=== PATIENT | female | born 1970 | race American Indian/Alaskan Native ===

== ENCOUNTER 2016-07-29 20:54 | Emergency (ER) | payer OTHER ==
[2016-07-29 21:09] VITALS: BMI 43.7
[2016-07-29 21:12] VITALS: RESP 18; TEMP 98.3; O2SAT 98
[2016-07-29] MEDS ORDERED: Oxycodone/Acetaminophen 5/325 mg Tab PO STA (21:22)
[2016-07-29] MEDS ORDERED: Lidocaine 5% Patch TD STA (21:22)
--- NOTE | 2016-07-29 21:22 | ED PDOC ---
Arrival/HPI - General Historian: Patient - General Chief Complaint: Back Pain Time Seen by Provider: 07/29/16 21:14 - History of Present Illness Narrative History of Present Illness (Text): 07/29/16 21:14 45 y/o female, pmh including htn and dm, penicillin allergy, c/o lower back pain x 2 days. Aching pain, aggravated by the movement, non-radiating, no night sweat, no urinary symptoms, no urinary or bowel incontinence or retention , no chest pain or shortness of breath, no night sweat, no numbness or tingling , no other medical or psychological complaint. (Casimiro Rodas) Past Medical History - Provider Review Nursing Documentation Reviewed: Yes - Infectious Disease Hx of Infectious Diseases: None - Tetanus Immunization Tetanus Immunization: Up to Date - Cardiac Hx Hypertension: Yes - Endocrine/Metabolic Hx Diabetes Mellitus Type 2: Yes - Psychiatric Hx Psychophysiologic Disorder: No Hx Depression: No Hx Emotional Abuse: No Hx Physical Abuse: No Hx Substance Use: No - Surgical History Other/Comment: hernia - Anesthesia Hx Anesthesia: Yes Hx Anesthesia Reactions: No Hx Malignant Hyperthermia: No - Suicidal Assessment Feels Threatened In Home Enviroment: No Family/Social History - Physician Review Nursing Documentation Reviewed: Yes Family/Social History: Unknown Family HX Smoking Status: Never Smoked Hx Alcohol Use: No Hx Substance Use: No Hx Substance Use Treatment: No Allergies/Home Meds Allergies/Adverse Reactions: Allergies Penicillins Allergy (Verified 07/29/16 21:09) ANAPHYLAXIS Home Medications: Home Meds Medication Instructions Recorded Confirmed Aspirin [Aspirin] 81 mg PO DAILY 02/11/15 02/14/15 Losartan/Hydrochlorothiazide 25 mg PO DAILY 02/11/15 02/14/15 [Hyzaar 12.5 mg-100 mg] Metformin Hydrochloride [Metformin] 500 mg PO DAILY 02/11/15 02/14/15 Review of Systems - Review of Systems Constitutional: absent: Fatigue, Fevers Eyes: absent: Vision Changes ENT: absent: Hearing Changes Respiratory: absent: SOB, Cough, Sputum Cardiovascular: absent: Chest Pain Gastrointestinal: absent: Abdominal Pain, Nausea, Vomiting Musculoskeletal: Back Pain. absent: Arthralgias, Neck Pain, Joint Swelling, Myalgias Skin: absent: Rash, Pruritis, Skin Lesions, Laceration Psychiatric: absent: Anxiety, Depression, Suicidal Ideation Physical Exam Vital Signs Reviewed: Yes Temperature: Afebrile Blood Pressure: Normal Pulse: Regular Respiratory Rate: Normal Appearance: Positive for: Well-Appearing, Non-Toxic, Comfortable Pain Distress: Severe Mental Status: Positive for: Alert and Oriented X 3 - Systems Exam Head: Present: Atraumatic, Normocephalic Pupils: Present: PERRL Extroacular Muscles: Present: EOMI Conjunctiva: Present: Normal Mouth: Present: Moist Mucous Membranes Neck: Present: Normal Range of Motion Respiratory/Chest: Present: Clear to Auscultation, Good Air Exchange. No: Respiratory Distress, Accessory Muscle Use Cardiovascular: Present: Regular Rate and Rhythm, Normal S1, S2. No: Murmurs Abdomen: Present: Normal Bowel Sounds. No: Tenderness, Distention, Peritoneal Signs Back: Present: Normal Inspection, Paraspinal Tenderness, Other (LS spine: +ttp and spasm noted on the bilateral region, no midline tenderness or step off, FROM without limitation, sensation intact, motor 5/5). No: CVA Tenderness, Midline Tenderness, Pain with Leg Raise, Decubitus Ulcer Upper Extremity: Present: Normal Inspection. No: Cyanosis, Edema Lower Extremity: Present: Normal Inspection. No: Edema Neurological: Present: GCS=15, CN II-XII Intact, Speech Normal Skin: Present: Warm, Dry, Normal Color. No: Rashes Psychiatric: Present: Alert, Oriented x 3, Normal Insight, Normal Concentration Vital Signs Temp Pulse Resp BP Pulse Ox 07/29/16 21:12 98.3 F 88 18 149/90 98 Medical Decision Making - RAD Interpretation Adoption Specialist: Radiologist ED Course and Treatment: I was available for consultation during PA evaluation. The chart reviewed by me , and I agree with disposition. The documented history was done by the physician division sales manager. The documented physical exam was done by the physician division sales manager. The documented procedures were done by the physician division sales manager. (Diego Stiles) 07/29/16 21:36 -Toradol/percocet/flexeril/lidoderm -CT Lumbar spine 07/29/16 23:32 -Pain decrease significantly -CT Lumbar spine show L4L5 and L5S1 lumbar herniation, no focal neurological deficits, decadron 8mg IM ordered. -Pt. has no focal neurological deficits, walking with normal gait and posture, will discharge home. -Discharge home with lidoderm patch, flexeril, cane, continue the naproxen you have at home, follow up with your own pmd and neurosurgery within 2 days, return to the ER for any new or worsening signs or symptoms. (Casimiro Rodas) - RAD Interpretation Radiology Orders: 07/29/16 21:22 LUMBAR SPINE W/O CONTRAST [CT] Stat 07/29/16 21:22 LUMBAR SPINE W/O CONTRAST [CT] Stat FINDINGS: Vertebrae: 5 lumbar vertebral bodies are normal in height and configuration. There are no fractures. There is partial lumbarization of the S1 segment. There is degenerative facet disease L4-5 at L5-S1. Sacroiliac joints are patent. L1-2 disc space is preserved. L2-3 disc space is preserved. L3-4 disc space is preserved. L4-5 disc space is preserved. There is central and left disc bulging L4/L5. There is mild narrowing of the L5-S1 disc space. There is central and left disc bulging. There is mild anterolisthesis of L5 on S1. Discs/spinal canal/neural foramina: See above. Soft tissues: Psoas and paraspinous muscles are symmetric. Lymph nodes: There is shotty para-aortic adenopathy. IMPRESSION: No fracture; disc bulging L4-5 and L5-S1; partial lumbarization of S1 segment Dictated By: Jessica Painting MD (Casimiro Rodas) - Medication Orders Current Medication Orders: Dexamethasone (Decadron Inj) 8 mg IM STAT STA Stop: 07/29/16 23:31 Discontinued Medications Cyclobenzaprine HCl (Flexeril) 10 mg PO STAT STA Stop: 07/29/16 21:23 Last Admin: 07/29/16 21:54 Dose: 10 mg Ketorolac Tromethamine (Toradol) 60 mg IM STAT STA Stop: 07/29/16 21:23 Last Admin: 07/29/16 21:55 Dose: 60 mg Lidocaine (Lidoderm) 1 ea TD STAT STA Stop: 07/29/16 21:23 Last Admin: 07/29/16 21:55 Dose: 1 ea Oxycodone/Acetaminophen (Percocet 5/325 Mg Tab) 1 tab PO STAT STA Stop: 07/29/16 21:23 Last Admin: 07/29/16 21:54 Dose: 1 tab - PA / HOUSEPERSON / Resident Statement MD/DO has reviewed & agrees with the documentation as recorded. Disposition/Present on Arrival - Present on Arrival Any Indicators Present on Arrival: No History of DVT/PE: No History of Uncontrolled Diabetes: No Urinary Catheter: No History of Decub. Ulcer: No History Surgical Site Infection Following: None - Disposition Have Diagnosis and Disposition been Completed?: Yes Disposition Time: 23:34 Patient Plan: Discharge - Disposition Diagnosis: Lumbar disc herniation, Low back pain Disposition: HOME/ ROUTINE Condition: IMPROVED Additional Instructions: ischarge home with lidoderm patch, flexeril, cane, continue the naproxen you have at home, follow up with your own pmd and neurosurgery within 2 days, return to the ER for any new or worsening signs or symptoms. Prescriptions: Cyclobenzaprine [Cyclobenzaprine HCl] 10 mg PO TID PRN #21 tab PRN Reason: Other Lidocaine 5% [Lidoderm] 1 patch TOP DAILY PRN #14 patch PRN Reason: pain Referrals: Cb Hernandez MD [Primary Care Provider] - Follow up with primary Noel Evangelista MD [Staff Provider] - Follow up with primary Forms: WORK NOTE
--- NOTE | 2016-07-29 23:17 | CT ---
EXAM: CT Lumbar Spine Without Intravenous Contrast CLINICAL HISTORY: 45 years old, female; Pain; Low back pain; Additional info: Lower back pain TECHNIQUE: Axial computed tomography images of the lumbar spine without intravenous contrast. This CT exam was performed using one or more of the following dose reduction techniques: automated exposure control, adjustment of the mA and/or kV according to patient size, and/or use of iterative reconstruction technique. Coronal and sagittal reformatted images were created and reviewed. EXAM DATE/TIME: 07/29/2016 9:22 PM COMPARISON: MR - SPINAL CANAL LUMBAR W/O CONT 04/21/2015 2:05:34 PM FINDINGS: Vertebrae: 5 lumbar vertebral bodies are normal in height and configuration. There are no fractures. There is partial lumbarization of the S1 segment. There is degenerative facet disease L4-5 at L5-S1. Sacroiliac joints are patent. L1-2 disc space is preserved. L2-3 disc space is preserved. L3-4 disc space is preserved. L4-5 disc space is preserved. There is central and left disc bulging L4/L5. There is mild narrowing of the L5-S1 disc space. There is central and left disc bulging. There is mild anterolisthesis of L5 on S1. Discs/spinal canal/neural foramina: See above. Soft tissues: Psoas and paraspinous muscles are symmetric. Lymph nodes: There is shotty para-aortic adenopathy. IMPRESSION: No fracture; disc bulging L4-5 and L5-S1; partial lumbarization of S1 segment
[2016-07-30 00:57] VITALS: BP 136/70
[2016-07-30 01:03] VITALS: PULSE 92
== END 2016-07-30 01:29 | disposition home or self-care (01) ==
LOC: ED 20:54
DX: M51.26 Other intervertebral disc displacement, lumbar region (principal)
CPT/HCPCS: 72131; 96372; 99283; J1100; J1885

== ENCOUNTER 2017-01-28 20:49 | Emergency (ER) | payer OTHER ==
[2017-01-28 20:58] VITALS: BMI 41.0
[2017-01-28 21:04] VITALS: TEMP 98.4
--- NOTE | 2017-01-28 21:09 | ED PDOC ---
Arrival/HPI - General Chief Complaint: Back Pain Time Seen by Provider: 01/28/17 20:56 Historian: Patient - History of Present Illness Narrative History of Present Illness (Text): 01/28/17 21:06 46yo female with PMhx of hypertension, Diabetes, LS herniated disc present with complaint of left sided neck pain x 2days. Notes that pain started yesterday morning. Pain is constant and achy. states pain was better yesterday when the daughter massaged the area. She took Naprosyn twice today without relieve. she denies chest pain, SOB, diaphoresis, trauma, focal weakness, paresthesia, any other complaint. Past Medical History - Provider Review Nursing Documentation Reviewed: Yes - Infectious Disease Hx of Infectious Diseases: None - Tetanus Immunization Tetanus Immunization: Up to Date - Cardiac Hx Hypertension: Yes - Endocrine/Metabolic Hx Diabetes Mellitus Type 2: Yes - Psychiatric Hx Psychophysiologic Disorder: No Hx Depression: No Hx Emotional Abuse: No Hx Physical Abuse: No Hx Substance Use: No - Surgical History Other/Comment: hernia - Anesthesia Hx Anesthesia: Yes Hx Anesthesia Reactions: No Hx Malignant Hyperthermia: No - Suicidal Assessment Feels Threatened In Home Enviroment: No Family/Social History - Physician Review Nursing Documentation Reviewed: Yes Family/Social History: Unknown Family HX Smoking Status: Never Smoked Hx Alcohol Use: No Hx Substance Use: No Hx Substance Use Treatment: No Allergies/Home Meds Allergies/Adverse Reactions: Allergies Penicillins Allergy (Verified 07/29/16 21:09) ANAPHYLAXIS Home Medications: Home Meds Medication Instructions Recorded Confirmed Aspirin [Aspirin] 81 mg PO DAILY 02/11/15 01/28/17 Losartan/Hydrochlorothiazide 25 mg PO DAILY 02/11/15 01/28/17 [Hyzaar 12.5 mg-100 mg] Metformin HCl [Fortamet] 500 mg PO BID 01/28/17 01/28/17 Review of Systems - Physician Review All systems were reviewed & negative as marked: Yes - Review of Systems Constitutional: Normal Eyes: Normal ENT: Normal Respiratory: Normal Cardiovascular: Normal Gastrointestinal: Normal Genitourinary Female: Normal Musculoskeletal: Neck Pain Skin: Normal Neurological: Normal Endocrine: Normal Hemo/Lymphatic: Normal Psychiatric: Normal Physical Exam Vital Signs Reviewed: Yes Vital Signs Temp Pulse Resp BP Pulse Ox 01/29/17 00:30 92 H 16 151/83 H 97 01/28/17 21:03 98.4 F 90 20 169/85 H 98 Temperature: Afebrile Blood Pressure: Normal Pulse: Regular Respiratory Rate: Normal Appearance: Positive for: Well-Appearing, Non-Toxic, Comfortable Pain Distress: None Mental Status: Positive for: Alert and Oriented X 3 - Systems Exam Head: Present: Atraumatic, Normocephalic Pupils: Present: PERRL Extroacular Muscles: Present: EOMI Conjunctiva: Present: Normal Mouth: Present: Moist Mucous Membranes Neck: Present: Normal Range of Motion. No: Meningeal Signs, MIDLINE TENDERNESS , Paraspinal Tenderness Respiratory/Chest: Present: Clear to Auscultation, Good Air Exchange. No: Respiratory Distress, Accessory Muscle Use Cardiovascular: Present: Regular Rate and Rhythm, Normal S1, S2. No: Murmurs Abdomen: Present: Normal Bowel Sounds. No: Tenderness, Distention, Peritoneal Signs Back: Present: Normal Inspection Upper Extremity: Present: Normal Inspection, Normal ROM, NORMAL PULSES, Neurovascularly Intact. No: Cyanosis, Edema, Tenderness, Swelling Lower Extremity: Present: Normal Inspection. No: Edema Neurological: Present: GCS=15, CN II-XII Intact, Speech Normal Skin: Present: Warm, Dry, Normal Color. No: Rashes Psychiatric: Present: Alert, Oriented x 3, Normal Insight, Normal Concentration Medical Decision Making ED Course and Treatment: 01/28/17 21:16 Pt 's pain was controlled in ED with medication. Cervical spine xray DJD. No acute finding. She was DC home with Flexeril rx, she already have Naprosyn at home. Advised to f/u with her PMD for further evaluation. - RAD Interpretation Radiology Orders: 01/28/17 21:05 CERVICAL SPINE >18YR W/OBLIQUE [RAD] Stat - Medication Orders Current Medication Orders: Discontinued Medications Cyclobenzaprine HCl (Flexeril) 10 mg PO STAT STA Stop: 01/28/17 21:16 Last Admin: 01/28/17 21:38 Dose: 10 mg Ketorolac Tromethamine (Toradol) 60 mg IM STAT STA Stop: 01/28/17 21:16 Last Admin: 01/29/17 00:01 Dose: 60 mg MAR Pain Assessment Document 01/29/17 00:01 CNR (Rec: 01/29/17 00:03 CNR [id number]) Pain Reassessment Is this a pain reassessment? Yes IM Administration Charges Document 01/29/17 00:01 CNR (Rec: 01/29/17 00:03 CNR [id number]) Injection Site MAR Injection Site Right Gluteus Caesar Charges for Administration # of IM Administrations 1 Disposition/Present on Arrival - Present on Arrival Any Indicators Present on Arrival: No History of DVT/PE: No History of Uncontrolled Diabetes: No Urinary Catheter: No History of Decub. Ulcer: No History Surgical Site Infection Following: None - Disposition Have Diagnosis and Disposition been Completed?: Yes Diagnosis: Neck pain Disposition: HOME/ ROUTINE Disposition Time: 00:50 Patient Plan: Discharge Patient Problems: Current Active Problems Problem Status Onset Neck pain Acute Condition: STABLE Discharge Instructions (ExitCare): Cervical Sprain (ED) Additional Instructions: Follow up with your Doctor Return to ED for any new or worsening symptoms Prescriptions: Cyclobenzaprine [Cyclobenzaprine HCl] 10 mg PO TID #12 tab Referrals: Cb Hernandez MD [Primary Care Provider] - Follow up with primary Forms: [employer] (Welsh), WORK NOTE
[2017-01-29 00:34] VITALS: BP 151/83; PULSE 92; RESP 16; O2SAT 97
--- NOTE | 2017-01-29 09:06 | CARD ---
APPROVED REPORT EKG Measurement Heart [id number] <Conclusion> Normal sinus rhythm Nonspecific T wave abnormality Q in 3
--- NOTE | 2017-01-29 10:23 | RAD ---
PROCEDURE: Cervical Spine Radiographs. HISTORY: Pain. COMPARISON: None. FINDINGS: BONES: Alignment maintained. No fracture. Dens Intact. DISC SPACES: Normal. SOFT TISSUES: Normal. No prevertebral soft tissue swelling. OTHER FINDINGS: None. IMPRESSION: Normal cervical spine radiographs
== END 2017-01-29 01:06 | disposition home or self-care (01) ==
LOC: ED 20:49
DX: M54.2 Cervicalgia (principal); E11.9 Type 2 diabetes mellitus without complications; I10 Essential (primary) hypertension; Z88.0 Allergy status to penicillin
CPT/HCPCS: 72050; 93005; 96372; 99284; J1885

== ENCOUNTER 2017-06-08 11:45 | Emergency (ER) | payer OTHER ==
[2017-06-08 11:45] VITALS: BMI 41.0
[2017-06-08 12:12] VITALS: TEMP 98
--- NOTE | 2017-06-08 13:12 | ED PDOC ---
Arrival/HPI - General Chief Complaint: Back Pain Time Seen by Provider: 06/08/17 12:42 Historian: Patient - History of Present Illness Narrative History of Present Illness (Text): 06/08/17 13:03 Patient is a 46 year old Type II diabetic female, with a history of lumbar disc herniation and radiculopathy, who presents today with LBP that wraps around to the sides and down to the groin for the past 2 weeks. She also report incontinence and a lower abdominal fullness that may be related to her previous umbilical hernia that was repaired in 2008 but has since become more pronounced. States she cannot wear a belt because it creates too much pressure. Her PMD is Dr. Hernandez but cannot see him until June 21 and is here because the discomfort is too intense. Denies dysuria, fever, chills, GIB, n/v/d, change in sensation, trauma or any other complaints. Time/Duration: < month Symptom Onset: Gradual Symptom Course: Unchanged Quality: Aching, Pressure Severity Level: 5 Activities at Onset: Rest Context: Home, Work Past Medical History - Provider Review Nursing Documentation Reviewed: Yes - Travel History Have you recently traveled outside [place] w/in the past 3 mons?: No - Infectious Disease Hx of Infectious Diseases: None - Tetanus Immunization Tetanus Immunization: Up to Date - Cardiac Hx Cardiac Disorders: Yes Hx Hypertension: Yes - Pulmonary Hx Respiratory Disorders: No - Neurological Hx Neurological Disorder: No - HEENT Hx HEENT Disorder: No - Renal Hx Renal Disorder: No - Endocrine/Metabolic Hx Endocrine Disorders: Yes Hx Diabetes Mellitus Type 2: Yes - Hematological/Oncological Hx Blood Disorders: No - Integumentary Hx Dermatological Disorder: No - Musculoskeletal/Rheumatological Hx Musculoskeletal Disorders: Yes Hx Back Pain: Yes - Gastrointestinal Hx Gastrointestinal Disorders: Yes Other/Comment: HERNIA - Genitourinary/Gynecological Hx Genitourinary Disorders: No - Psychiatric Hx Psychophysiologic Disorder: No Hx Substance Use: No - Surgical History Other/Comment: hernia - Anesthesia Hx Anesthesia: Yes Hx Anesthesia Reactions: No Hx Malignant Hyperthermia: No - Suicidal Assessment Feels Threatened In Home Enviroment: No Family/Social History - Physician Review Nursing Documentation Reviewed: Yes Family/Social History: Unknown Family HX Smoking Status: Never Smoked Hx Alcohol Use: No Hx Substance Use: No Hx Substance Use Treatment: No Allergies/Home Meds Allergies/Adverse Reactions: Allergies Penicillins Allergy (Verified 06/08/17 12:06) ANAPHYLAXIS Home Medications: Home Meds Medication Instructions Recorded Confirmed Aspirin [Aspirin] 81 mg PO DAILY 02/11/15 06/08/17 Losartan/Hydrochlorothiazide 25 mg PO DAILY 02/11/15 06/08/17 [Hyzaar 12.5 mg-100 mg] Metformin HCl [Fortamet] 500 mg PO BID 01/28/17 06/08/17 Review of Systems - Review of Systems Constitutional: Normal Eyes: Normal ENT: Normal Respiratory: Normal Cardiovascular: Normal Gastrointestinal: Normal, Abdominal Pain Genitourinary Female: Frequency, Urine Output Changes Musculoskeletal: Normal, Back Pain Skin: Normal Neurological: Normal Endocrine: Normal Hemo/Lymphatic: Normal Psychiatric: Normal Physical Exam Vital Signs Reviewed: Yes Vital Signs Temp Pulse Resp BP Pulse Ox 06/08/17 13:42 89 18 135/79 98 06/08/17 12:07 98.0 F 95 H 16 137/84 97 Temperature: Afebrile Blood Pressure: Normal Pulse: Regular Respiratory Rate: Normal Appearance: Positive for: Well-Appearing, Non-Toxic, Comfortable Pain Distress: Mild Mental Status: Positive for: Alert and Oriented X 3 - Systems Exam Head: Present: Atraumatic, Normocephalic Pupils: Present: PERRL Extroacular Muscles: Present: EOMI Conjunctiva: Present: Normal Mouth: Present: Moist Mucous Membranes Neck: Present: Normal Range of Motion Respiratory/Chest: Present: Clear to Auscultation, Good Air Exchange. No: Respiratory Distress, Accessory Muscle Use Cardiovascular: Present: Regular Rate and Rhythm, Normal S1, S2. No: Murmurs Abdomen: Present: Tenderness (suprapubic), Distention, Normal Bowel Sounds, Hernias (umbilical). No: Peritoneal Signs, Rebound, Guarding, McBurney's Point Tender, Rovsing's Sign Present Back: Present: Midline Tenderness, Paraspinal Tenderness, Other (si joint bilateral). No: CVA Tenderness Upper Extremity: Present: Normal Inspection. No: Cyanosis, Edema Lower Extremity: Present: Normal Inspection. No: Edema Neurological: Present: GCS=15, CN II-XII Intact, Speech Normal Skin: Present: Warm, Dry, Normal Color. No: Rashes Psychiatric: Present: Alert, Oriented x 3, Normal Insight, Normal Concentration Medical Decision Making ED Course and Treatment: 06/08/17 13:12 Impression Patient is a 46 year old Type II diabetic female, with a history of lumbar disc herniation and radiculopathy, who presents today with LBP that wraps around to the sides and down to the groin for the past 2 weeks. On exam, point tender of the L4-S1 segments and bilateral SIJ pain that refers, altered sensation of the left thigh, suprapubic tenderness along with inferior umbilical protrusion with a globus abdomen Working Dx; LS radiculopathy, UTI, renal stone, hernia Plan Labs, Imaging pain management assess and dispo Progress Note 06/08/17 14:23 Hbg 8.9 but no previous labs to compare CT unremarkable Urine glucose >1000, sml amt of ketones advised pt to have pelvic and rectal done to ascertain bleed 06/08/17 15:24 Spoke with pt about findings and concern for anemia; had colonoscopy and endoscopy last Monday as well as pelvic US in the last few months Will f/u with PMD and encouraged sticking with a diabetic diet; avoid sugar Counseled on the risks of hyperglycemia and developing DKA - Lab Interpretations Lab Results: 06/08/17 12:50 06/08/17 12:50 Lab Results 06/08/17 13:20: Urine Color Yellow, Urine Appearance Clear, Urine pH 6.0, Ur Specific [place] 1.025, Urine Protein Negative, Urine Glucose (UA) >=1000, Urine Ketones Trace H, Urine Blood Negative, Urine Nitrate Negative, Urine Bilirubin Negative, Urine Urobilinogen 0.2, Ur Leukocyte Esterase Negative 06/08/17 12:50: Sodium 141, Potassium 3.8, Chloride 104, Carbon Dioxide 30, Anion Gap 11, BUN 14, Creatinine 0.8, Est GFR ( Amer) > 60, Est GFR (Non- Af Amer) > 60, Random Glucose 280 H, Calcium 9.4, Total Bilirubin 0.3, AST 28, ALT 33, Alkaline Phosphatase 60, Total Protein 6.9, Albumin 3.8, Globulin 3.1, Albumin/Globulin Ratio 1.2 06/08/17 12:50: WBC 8.4, RBC 4.38, Hgb 8.9 L, Hct 30.1 L, MCV 68.7 L, MCH 20.3 L , MCHC 29.6 L, RDW 18.2 H, Plt Count 276, MPV 10.1 I have reviewed the lab results: Yes - RAD Interpretation Narrative RAD Interpretations (Text): 06/08/17 14:16 LOWER THORAX: Unremarkable. LIVER: Unremarkable. No gross lesion or ductal dilatation. GALLBLADDER AND BILE DUCTS: Unremarkable. PANCREAS: Unremarkable. No gross lesion or ductal dilatation. SPLEEN: Unremarkable. ADRENALS: Unremarkable. No mass. KIDNEYS AND URETERS: Unremarkable. No hydronephrosis. No solid mass. VASCULATURE: Unremarkable. No aortic aneurysm. BOWEL: Unremarkable. No obstruction. No gross mural thickening. There is mild diverticulosis APPENDIX: Unremarkable. Normal appendix. PERITONEUM: Unremarkable. No free fluid. No free air. There is a thinning protuberant anterior abdominal wall without a discrete defect. A hernia mesh is seen. LYMPH NODES: Unremarkable. No enlarged lymph nodes. BLADDER: Unremarkable. REPRODUCTIVE: Unremarkable. BONES: No acute fracture. OTHER FINDINGS: None. IMPRESSION: No acute findings Radiology Orders: 06/08/17 12:43 ABDOMEN & PELVIS [ABD & PELVIS W/O PO OR IV CONT] [CT] Stat Disposition/Present on Arrival - Present on Arrival Any Indicators Present on Arrival: Yes History of DVT/PE: No History of Uncontrolled Diabetes: No Urinary Catheter: No History of Decub. Ulcer: No History Surgical Site Infection Following: None - Disposition Have Diagnosis and Disposition been Completed?: Yes Diagnosis: Low back pain, Anemia, Radiculopathy of lumbosacral region Disposition: HOME/ ROUTINE Disposition Time: 15:27 Condition: GOOD Discharge Instructions (ExitCare): Low Back Pain (DC), The ABCs of Diabetes Additional Instructions: Sonia thank you for letting us take care of you today. Your provider was SANCHEZ Singh. You were treated for Low back pain and lumbar radiculopathy. The emergency medical care you received today was directed at your acute symptoms. If you were prescribed any medication, please fill it and take as directed. It may take several days for your symptoms to resolve. Return to the Emergency Department if your symptoms worsen, do not improve, or if you have any other problems. Please contact your doctor or call one of the physicians/clinics you have been referred to that are listed on the Patient Visit Information form that is included in your discharge packet. Bring any paperwork you were given at discharge with you along with any medications you are taking to your follow up visit. Our treatment cannot replace ongoing medical care by a primary care provider (PCP) outside of the emergency department. Thank you for allowing the [facility] team to be part of your care today. Prescriptions: Acetaminophen [Acetaminophen Extra Strength] 500 mg PO Q6 #20 tablet Gabapentin [Neurontin] 100 mg PO TID 5 Days #15 capsule Referrals: Cb Hernandez MD [Primary Care Provider] - Follow up with primary Forms: Ushahidi (Irish), WORK NOTE
[2017-06-08 13:33] LABS: HEMOGLOBIN 8.9 g/dL (12.0-16.0); MEAN CELL VOLUME 68.7 fl (80.0-105.0); MEAN CORPUSCULAR HEMOGLOBIN 20.3 pg (25.0-35.0); MEAN CORPUSCULAR HGB CONC 29.6 g/dl (31.0-37.0); MEAN PLATELET VOLUME 10.1 fl (7.0-11.0); RBC 4.38 10^6/uL (3.5-6.1); RED CELL DISTRIBUTION WIDTH 18.2 % (11.5-14.5); WHITE BLOOD COUNT 8.4 10^3/ul (4.5-11.0)
[2017-06-08 13:35] LABS: URINE BILIRUBIN NEGATIVE (NEGATIVE); URINE BLOOD NEGATIVE (NEGATIVE); URINE GLUCOSE (UA) >=1000 mg/dL (NEGATIVE); URINE LEUKOCYTE ESTERASE NEGATIVE Leu/uL (NEGATIVE); URINE PROTEIN NEGATIVE mg/dL (<30 mg/dL); URINE UROBILINOGEN 0.2 E.U./dL (<1 E.U./dL)
[2017-06-08 13:36] LABS: ALB/GLOB RATIO 1.2 (1.1-1.8); ALBUMIN 3.8 g/dL (3.0-4.8); ALT/SGPT 33 U/L (7-56); AST/SGOT 28 U/L (14-36); BLOOD UREA NITROGEN 14 mg/dL (7-21); CALCIUM 9.4 mg/dL (8.4-10.5); GFR AFRICAN-AMERICAN > 60; GFR NON-AFRICAN AMERICAN > 60
[2017-06-08 13:36] LABS: URINE APPEARANCE CLEAR (CLEAR); URINE COLOR YELLOW (YELLOW)
[2017-06-08 13:42] VITALS: BP 135/79; PULSE 89; RESP 18; O2SAT 98
--- NOTE | 2017-06-08 13:48 | CT ---
PROCEDURE: CT Abdomen and Pelvis without intravenous contrast HISTORY: abdominal pain COMPARISON: None. TECHNIQUE: Without contrast. Contrast Dose: Radiation dose: Total exam DLP = Total exam DLP = 1026 mGy-cm. This CT exam was performed using one or more of the following dose reduction techniques: Automated exposure control, adjustment of the mA and/or kV according to patient size, and/or use of iterative reconstruction technique. FINDINGS: LOWER THORAX: Unremarkable. LIVER: Unremarkable. No gross lesion or ductal dilatation. GALLBLADDER AND BILE DUCTS: Unremarkable. PANCREAS: Unremarkable. No gross lesion or ductal dilatation. SPLEEN: Unremarkable. ADRENALS: Unremarkable. No mass. KIDNEYS AND URETERS: Unremarkable. No hydronephrosis. No solid mass. VASCULATURE: Unremarkable. No aortic aneurysm. BOWEL: Unremarkable. No obstruction. No gross mural thickening. There is mild diverticulosis APPENDIX: Unremarkable. Normal appendix. PERITONEUM: Unremarkable. No free fluid. No free air. There is a thinning protuberant anterior abdominal wall without a discrete defect. A hernia mesh is seen. LYMPH NODES: Unremarkable. No enlarged lymph nodes. BLADDER: Unremarkable. REPRODUCTIVE: Unremarkable. BONES: No acute fracture. OTHER FINDINGS: None. IMPRESSION: No acute findings
== END 2017-06-08 15:43 | disposition home or self-care (01) ==
LOC: ED 11:45
DX: M54.5 Low back pain (principal); M54.17 Radiculopathy, lumbosacral region; D64.9 Anemia, unspecified; I10 Essential (primary) hypertension; E11.9 Type 2 diabetes mellitus without complications

== ENCOUNTER 2017-06-09 19:42 | Emergency (ER) | payer OTHER ==
[2017-06-09 19:42] VITALS: BMI 41.0
--- NOTE | 2017-06-09 19:57 | ED PDOC ---
Arrival/HPI - General Time Seen by Provider: 06/09/17 19:54 Historian: Patient - History of Present Illness Narrative History of Present Illness (Text): 06/09/17 19:56 46 year old female, pmh including htn/dm/lumbar radiculopathy, penicillin allergy, complaining of coughing/fever/fatigue started around 2pm today. Pt. stated that she has been having productive coughing, associated with fever tmax 101F, no antipyretic taken at home, admits fatigue and bodyache, no night sweat , no abdominal pain, no neck stiffness, no rash, no change in vision, no other medical or psychological complaints. Past Medical History - Provider Review Nursing Documentation Reviewed: Yes - Infectious Disease Hx of Infectious Diseases: None - Tetanus Immunization Tetanus Immunization: Up to Date - Cardiac Hx Cardiac Disorders: Yes Hx Hypertension: Yes - Pulmonary Hx Respiratory Disorders: No - Neurological Hx Neurological Disorder: No - HEENT Hx HEENT Disorder: No - Renal Hx Renal Disorder: No - Endocrine/Metabolic Hx Endocrine Disorders: Yes Hx Diabetes Mellitus Type 2: Yes - Hematological/Oncological Hx Blood Disorders: No - Integumentary Hx Dermatological Disorder: No - Musculoskeletal/Rheumatological Hx Musculoskeletal Disorders: Yes Hx Back Pain: Yes - Gastrointestinal Hx Gastrointestinal Disorders: Yes Other/Comment: HERNIA - Genitourinary/Gynecological Hx Genitourinary Disorders: No - Psychiatric Hx Psychophysiologic Disorder: No Hx Substance Use: No - Surgical History Other/Comment: hernia - Anesthesia Hx Anesthesia: Yes Hx Anesthesia Reactions: No Hx Malignant Hyperthermia: No - Suicidal Assessment Feels Threatened In Home Enviroment: No Family/Social History - Physician Review Nursing Documentation Reviewed: Yes Family/Social History: Unknown Family HX Smoking Status: Never Smoked Hx Alcohol Use: No Hx Substance Use: No Hx Substance Use Treatment: No Allergies/Home Meds Allergies/Adverse Reactions: Allergies Penicillins Allergy (Verified 06/09/17 19:59) ANAPHYLAXIS Home Medications: Home Meds Medication Instructions Recorded Confirmed Losartan/Hydrochlorothiazide 25 mg PO DAILY 02/11/15 06/09/17 [Hyzaar 12.5 mg-100 mg] Metformin HCl [Fortamet] 500 mg PO BID 01/28/17 06/09/17 Review of Systems - Review of Systems Constitutional: Fatigue, Fevers Eyes: absent: Vision Changes ENT: absent: Hearing Changes Respiratory: Cough. absent: SOB, Sputum, Wheezing Cardiovascular: absent: Chest Pain Gastrointestinal: absent: Abdominal Pain, Diarrhea, Nausea, Vomiting Musculoskeletal: Myalgias. absent: Arthralgias, Back Pain, Neck Pain, Joint Swelling Skin: absent: Rash, Pruritis, Skin Lesions Neurological: absent: Headache, Dizziness Psychiatric: absent: Anxiety, Depression, Suicidal Ideation Physical Exam Vital Signs Reviewed: Yes Vital Signs Temp Pulse Resp BP Pulse Ox 06/09/17 21:38 99.2 F 94 H 16 148/71 98 06/09/17 20:20 101.0 F H 06/09/17 19:55 101.0 F H 105 H 20 152/87 H 97 Temperature: Febrile Blood Pressure: Hypertensive Pulse: Tachycardic Respiratory Rate: Normal Appearance: Positive for: Well-Appearing, Non-Toxic, Comfortable Pain Distress: None Mental Status: Positive for: Alert and Oriented X 3 - Systems Exam Head: Present: Atraumatic, Normocephalic Pupils: Present: PERRL Extroacular Muscles: Present: EOMI Conjunctiva: Present: Normal Ears: Present: NORMAL TM, Normal Canal. No: Erythema Mouth: Present: Moist Mucous Membranes Neck: Present: Normal Range of Motion, Trachea Midline. No: Meningeal Signs, Lymphadenopathy Respiratory/Chest: Present: Clear to Auscultation, Good Air Exchange. No: Respiratory Distress, Accessory Muscle Use, Wheezes, Decreased Breath Sounds, Rales, Retracting, Rhonchi, Tachypneic Cardiovascular: Present: Regular Rate and Rhythm, Normal S1, S2. No: Murmurs Abdomen: No: Tenderness, Distention, Peritoneal Signs, Rebound, Guarding Back: Present: Normal Inspection. No: CVA Tenderness, Midline Tenderness Upper Extremity: Present: Normal Inspection. No: Cyanosis, Edema Lower Extremity: Present: Normal Inspection. No: Edema Neurological: Present: GCS=15, CN II-XII Intact, Speech Normal, Motor Func Grossly Intact, Gait Normal, Memory Normal Skin: Present: Warm, Dry, Normal Color. No: Rashes Psychiatric: Present: Alert, Oriented x 3, Normal Insight, Normal Concentration Medical Decision Making ED Course and Treatment: 06/09/17 20:07 -labs/ua/vbg/rapid flu -IVF/tylenol -Observe and reassess 06/09/17 21:14 -Urine hcg is negative -Rapid flu is positive, tamiflu and zithromax ordered -Labs show no acute findings except hgb 8.5 (similiar to previous labs, on her menstruation, chronic anemia as per patient and on iron supplement which she is seeing her own pmd about chronic anemia), Mg 1.6 (magnesium 1gm IV ordered). -Urinalysis show no UTI 06/09/17 21:55 -vital signs improved, pt. feels much better. -Discharge home with tamiflu, motrin, tessalon, zithromax, stay hydrated, bed rest, follow up with your own pmd and desk interviewer/oncologist within 2 days, return to the ER for any new or worsening signs or symptoms. - Lab Interpretations Lab Results: 06/09/17 20:26 06/09/17 20:26 Lab Results 06/09/17 20:34: Urine Color Yellow, Urine Appearance Clear, Urine pH 8.0, Ur Specific [place] 1.020, Urine Protein Negative, Urine Glucose (UA) Negative, Urine Ketones Negative, Urine Blood Negative, Urine Nitrate Negative, Urine Bilirubin Negative, Urine Urobilinogen 0.2, Ur Leukocyte Esterase Negative 06/09/17 20:26: WBC 8.1, RBC 4.28, Hgb 8.5 L, Hct 29.1 L, MCV 68.0 L, MCH 19.9 L , MCHC 29.2 L, RDW 18.2 H, Plt Count 231, MPV 9.9, Gran % 63.5, Lymph % (Auto) 19.7 L, [place] % (Auto) 16.5 H, Eos % (Auto) 0.1 L, Baso % (Auto) 0.2, Gran # 5.11 , Lymph # (Auto) 1.6, [place] # (Auto) 1.3 H, Eos # (Auto) 0.0, Baso # (Auto) 0.02 06/09/17 20:26: Sodium 137, Chloride 103, Potassium 3.8, Carbon Dioxide 27, Anion Gap 11, BUN 8, Creatinine 0.6 L, Est GFR ( Amer) > 60, Est GFR (Non -Af Amer) > 60, Random Glucose 126 H, Calcium 9.2, Magnesium 1.6 L, Total Bilirubin 0.7, AST 25, ALT 31, Alkaline Phosphatase 67, Total Protein 6.7, Albumin 3.6, Globulin 3.1, Albumin/Globulin Ratio 1.1 06/09/17 20:26: pO2 37, VBG pH 7.38, VBG pCO2 46.0, VBG HCO3 27.2, VBG Total CO2 28.6 H, VBG O2 Sat (Calc) 75.9 H, VBG Base Excess 1.5, VBG Potassium 3.9, Sodium 138.0, Chloride 106.0, Glucose 132 H, Lactate 1.2, FiO2 21.0, Venous Blood Potassium 3.9 06/09/17 20:00: Influenza Typ A,B (EIA) Pos for influenza a H - Medication Orders Current Medication Orders: Discontinued Medications Acetaminophen (Tylenol 325mg Tab) 650 mg PO STAT STA Stop: 06/09/17 20:03 Last Admin: 06/09/17 20:20 Dose: 650 mg MAR Pain/Vitals Document 06/09/17 20:20 MS (Rec: 06/09/17 20:21 [id number]) Pain Reassessment Is This A Pain ReAssessment? No Sleep Is patient sleeping during reassessment? No Vitals Temperature (97.6 F-99.6 F) 101.0 F Temperature Source Oral Azithromycin (Zithromax) 500 mg PO STAT STA PRN Reason: Protocol Stop: 06/09/17 21:15 Last Admin: 06/09/17 21:36 Dose: 500 mg Sodium Chloride (Sodium Chloride 0.9%) 1,000 mls @ 999 mls/hr IV .Q1H1M STA Stop: 06/09/17 21:02 Last Admin: 06/09/17 20:21 Dose: 999 mls/hr eMAR Start Stop Document 06/09/17 20:21 MS (Rec: 06/09/17 20:21 MS [id number]) Intravenous Solution Start Date 06/09/17 Start Time 20:21 End Date 06/09/17 End time 21:21 Total Infusion Time 60 Sodium Chloride (Sodium Chloride 0.9%) 1,000 mls @ 250 mls/hr IV .Q4H [facility] Last Admin: 06/09/17 21:37 Dose: 250 mls/hr eMAR Start Stop Document 06/09/17 21:37 MS (Rec: 06/09/17 21:37 MS [id number]) Intravenous Solution Start Date 06/09/17 Start Time 21:37 Magnesium Sulfate/Dextrose (Magnesium Sulfate 1 Gm/100 Ml D5w) 1 gm in 100 mls @ 100 mls/hr IVPB ONCE ONE Stop: 06/09/17 22:08 Last Admin: 06/09/17 21:36 Dose: 100 mls/hr eMAR Start Stop Document 06/09/17 21:36 MS (Rec: 06/09/17 21:36 MS [id number]) Intravenous Solution Start Date 06/09/17 Start Time 21:36 End Date 06/09/17 End time 22:36 Total Infusion Time 60 Oseltamivir Phosphate (Tamiflu Cap) 75 mg PO STAT STA PRN Reason: Protocol Stop: 06/09/17 20:37 Last Admin: 06/09/17 20:43 Dose: 75 mg - PA / MANAGER [employer] / Resident Statement / has reviewed & agrees with the documentation as recorded. Disposition/Present on Arrival - Present on Arrival Any Indicators Present on Arrival: No History of DVT/PE: No History of Uncontrolled Diabetes: No Urinary Catheter: No History of Decub. Ulcer: No History Surgical Site Infection Following: None - Disposition Have Diagnosis and Disposition been Completed?: Yes Diagnosis: Influenza, Anemia Disposition: HOME/ ROUTINE Disposition Time: 20:44 Patient Plan: Discharge Condition: CRITICAL Discharge Instructions (ExitCare): Flu, Adult (DC) Additional Instructions: -Discharge home with tamiflu, motrin, tessalon, zithromax, stay hydrated, bed rest, follow up with your own pmd and desk interviewer/oncologist within 2 days, return to the ER for any new or worsening signs or symptoms. Prescriptions: Azithromycin [Zithromax] 250 mg PO DAILY #4 tab Benzonatate [Tessalon Perles] 200 mg PO TID PRN #30 sgl PRN Reason: Other Ibuprofen [Motrin] 600 mg PO QID PRN #30 tab PRN Reason: Other Oseltamivir [Tamiflu] 75 mg PO BID #10 cap Referrals: Cb Hernandez MD [Primary Care Provider] - Follow up with primary Andre Shell MD [Staff Provider] - Follow up with primary Forms: WORK NOTE
[2017-06-09] MEDS ORDERED: Sodium Chloride 0.9% 1,000 ML IV STA (20:02)
[2017-06-09 20:38] LABS: VENOUS BLOOD GAS BASE EXCESS 1.5 mmol/L (0.0-2.0); VENOUS BLOOD GAS PO2 37 mm/Hg (30-55); VENOUS BLOOD PH 7.38 (7.32-7.43)
[2017-06-09 20:39] LABS: BASO # 0.02 K/mm3 (0.0-2.0); BASO % 0.2 % (0.0-3.0); EOS % 0.1 % (1.5-5.0); GRAN # 5.11 (1.4-6.5); GRAN % 63.5 % (50.0-68.0); HEMOGLOBIN 8.5 g/dL (12.0-16.0); LYMPH # 1.6 (1.2-3.4); LYMPH % 19.7 % (22.0-35.0); MEAN CORPUSCULAR HEMOGLOBIN 19.9 pg (25.0-35.0); MEAN CORPUSCULAR HGB CONC 29.2 g/dl (31.0-37.0); MEAN PLATELET VOLUME 9.9 fl (7.0-11.0); MONO # 1.3 (0.1-0.6); MONO % 16.5 % (1.0-6.0); RBC 4.28 10^6/uL (3.5-6.1); RED CELL DISTRIBUTION WIDTH 18.2 % (11.5-14.5); WHITE BLOOD COUNT 8.1 10^3/ul (4.5-11.0)
[2017-06-09 20:42] LABS: URINE BILIRUBIN NEGATIVE (NEGATIVE); URINE BLOOD NEGATIVE (NEGATIVE); URINE GLUCOSE (UA) NEGATIVE (NEGATIVE); URINE LEUKOCYTE ESTERASE NEGATIVE Leu/uL (NEGATIVE); URINE PROTEIN NEGATIVE mg/dL (<30 mg/dL); URINE UROBILINOGEN 0.2 E.U./dL (<1 E.U./dL)
[2017-06-09 20:43] LABS: URINE APPEARANCE CLEAR (CLEAR); URINE COLOR YELLOW (YELLOW)
[2017-06-09] MEDS ORDERED: Sodium Chloride 0.9% 1,000 ML IV SCH (20:45)
[2017-06-09 20:59] LABS: ALB/GLOB RATIO 1.1 (1.1-1.8); ALBUMIN 3.6 g/dL (3.0-4.8); ALT/SGPT 31 U/L (7-56); AST/SGOT 25 U/L (14-36); BLOOD UREA NITROGEN 8 mg/dL (7-21); CALCIUM 9.2 mg/dL (8.4-10.5); GFR AFRICAN-AMERICAN > 60; GFR NON-AFRICAN AMERICAN > 60
[2017-06-09] MEDS ORDERED: Magnesium Sulfate 1 gm in D5W 1 GM/100 ML BAG IVPB ONE (21:09)
[2017-06-09 21:40] VITALS: BP 148/71; PULSE 94; RESP 16; TEMP 99.2; O2SAT 98
== END 2017-06-09 22:06 | disposition home or self-care (01) ==
LOC: ED 19:42
DX: J11.1 Influenza due to unidentified influenza virus with other respiratory manifestations (principal); D64.9 Anemia, unspecified; I10 Essential (primary) hypertension; E11.9 Type 2 diabetes mellitus without complications
CPT/HCPCS: 80053; 81003; 82803; 83735; 85025; 87804; 96361; 96365; 99283; J3475; J7040